=== PATIENT | male | born 1955 ===

== ENCOUNTER 2024-09-25 09:53 | Day surgery (SDC) | payer OTHER ==
[2024-09-25] MEDS ORDERED: CEFTRIAXONE SODIUM 2,000 MG VIAL ONE (12:22)
[2024-09-25] MEDS ORDERED: METRONIDAZOLE/SODIUM CHLORIDE 500 MG/100 ML PIGGYBACK IV ONE (12:23)
[2024-09-25] MEDS ORDERED: HEMOSTATIC MATRIX 1 KIT KIT TOP ONE (12:27)
[2024-09-25] MEDS ORDERED: LIDOCAINE HCL 1%/EPINEPHRINE 20ML VIAL IJ ONE (12:27)
[2024-09-25] MEDS ORDERED: BUPIVACAINE HCL/MPF 0.5% 30ML VIAL ONE (12:27)
[2024-09-25] MEDS ORDERED: DIBUCAINE 30 GM TUBE ONE (12:28)
[2024-09-25] MEDS ORDERED: POVIDONE-IODINE 118 ML BOTT TOP ONE (12:28)
== END 2024-09-25 21:00 | disposition home or self-care (01) ==
LOC: CIR.AMB 09:53
PROVIDERS: ATTEND Colon & Rectal Surgery
DX: D12.8 Benign neoplasm of rectum (principal); D12.9 Benign neoplasm of anus and anal canal; K64.2 Third degree hemorrhoids; I10 Essential (primary) hypertension; E78.5 Hyperlipidemia, unspecified; M19.90 Unspecified osteoarthritis, unspecified site; I49.9 Cardiac arrhythmia, unspecified